=== PATIENT | male | born 1980 | race Caucasian/White ===

== ENCOUNTER 2020-08-25 12:39 | Emergency (ER) | payer OTHER ==
[2020-08-25 12:44] VITALS: RESP 18; TEMP 98.8
[2020-08-25] MEDS ORDERED: SODIUM CHLORIDE 0.9% 1,000 ML IV STA (13:15)
[2020-08-25 13:50] LABS: Basophils # (A) 0.1 k/uL (0-0.2); Basophils % (A) 1 %; Eosinophils # (A) 0.2 k/uL (0-0.7); Eosinophils % (A) 4 %; HGB 16.1 gm/dL (13.0-17.5); Lymphocytes # (A) 1.5 k/uL (1.0-4.8); Lymphocytes % (A) 30 %; MCH 30.1 pg (25.0-35.0); MCHC 35.9 g/dL (31.0-37.0); Mean Platelet Volume 7.4; Monocytes # (A) 0.3 k/uL (0-1.0); Monocytes % (A) 7 %; Neutrophils # (A) 2.8 k/uL (1.3-7.7); Neutrophils % (A) 56 %; Platelet Count 197 k/uL (150-450); RBC 5.36 m/uL (4.30-5.90); RDW 12.7 % (11.5-15.5)
[2020-08-25 14:00] LABS: Partial Thromboplastin Time 25.8 sec (22.0-30.0); Prothrombin Time 10.5 sec (9.0-12.0)
[2020-08-25 14:12] LABS: ALT 48 U/L (4-49); AST 32 U/L (17-59); African American GFR (CKD) >90 (>60 ml/min/1.73 sqM); Albumin 4.6 g/dL (3.5-5.0); Alkaline Phosphatase 58 U/L (38-126); Anion Gap 5 mmol/L; Blood Urea Nitrogen 17 mg/dL (9-20); Calcium 9.5 mg/dL (8.4-10.2); Carbon Dioxide 29 mmol/L (22-30); Chloride 106 mmol/L (98-107); Glucose 82 mg/dL (74-99); Non-African American GFR(CKD) 86 (>60 ml/min/1.73 sqM); Potassium 4.4 mmol/L (3.5-5.1); Sodium 140 mmol/L (137-145); Total Bilirubin 0.7 mg/dL (0.2-1.3); Total Protein 7.5 g/dL (6.3-8.2)
--- NOTE | 2020-08-25 15:05 | CT ---
EXAMINATION TYPE: CT abdomen pelvis w con DATE OF EXAM: 08/25/2020 COMPARISON: None INDICATION: rectal bleeding DLP: 1436.5 mGycm, Automated exposure control for dose reduction was used. CONTRAST: 100 mL of Isovue 300. Study performed without Oral Contrast TECHNIQUE: Axial images were obtained from above the diaphragm to the pubic rami in the axial plane a t 5 mm thick sections. Reconstructed images are reviewed on the computer in the coronal plane. FINDINGS: Limited CT sections are obtained the lung bases. The lung bases are clear. CT ABDOMEN: Liver: There is mild fatty infiltration the liver. Spleen: Normal Pancreas: Normal Adrenal glands: The adrenal glands are normal. Gallbladder: Normal Kidneys: No masses are evident. No hydronephrosis is present. Tiny cortical renal cyst may be prese nt on the right. Delayed images were obtained through the kidneys, which remain unremarkable. Aorta: Normal Inferior vena cava: Normal. CT PELVIS: Loops of bowel within the abdomen and pelvis are normal. No suspicious dilated loops of bowel or wal l thickening is evident. No acute diverticulitis is evident. No dilated loops of bowel are evident There are loops of bowel which are incompletely distended or lack oral contrast limiting their evalua tion. Appendix: Normal as visualized. Urinary bladder: Normal. Genitourinary structures: Prostate is normal. Osseous structures: No suspicious lytic or sclerotic lesions. IMPRESSIONS: 1. No suspicious abnormality to account for rectal bleeding is evident. 2. Mild fatty infiltration the liver
--- NOTE | 2020-08-25 15:19 | ED ---
GI Bleed HPI - General Chief complaint: GI Bleed Stated complaint: Blood in stool Time Seen by Provider: 08/25/20 12:54 Source: patient Mode of arrival: ambulatory Limitations: no limitations - History of Present Illness Initial comments: Patient is a 39-year-old male with no past medical history presents emergency room with reported rectal bleeding. Patient states that yesterday he had some diarrhea which is not abnormal for him. Today he awoke with continued diarrhea. He then ended up having an episode where he filled the toilet bowl with bright red blood. No history of similar. Patient denies history of peptic ulcer disease. Denies use of NSAIDs or alcohol. Denies any abdominal pain or rectal pain. No nausea, vomiting or hematemesis. No fevers or chills. No family history or personal history of inflammatory bowel disease. No chest pain or shortness of breath. No other alleviating, precipitating or modifying factors - Related Data Home Medications Medication Instructions Recorded Confirmed No Known Home Medications 03/31/16 08/25/20 Allergies Allergy/AdvReac Type Severity Reaction Status Date / Time No Known Allergies Allergy Verified 08/25/20 14:47 Review of Systems ROS Statement: Those systems with pertinent positive or pertinent negative responses have been documented in the HPI. ROS Other: All systems not noted in ROS Statement are negative. Past Medical History Past Medical History: No Reported History History of Any Multi-Drug Resistant Organisms: MRSA Date of last positivie culture/infection: 2007 MDRO Source:: right forearm, left elbow. Past Surgical History: Orthopedic Surgery Additional Past Surgical History / Comment(s): Left wrist sx Past Psychological History: No Psychological Hx Reported Smoking Status: Never smoker Past Alcohol Use History: Occasional Past Drug Use History: None Reported General Exam Limitations: no limitations Course Vital Signs 08/25/20 08/25/20 12:41 15:35 Temperature 98.8 F Pulse Rate 78 60 Respiratory 18 18 Rate Blood Pressure 133/85 125/87 O2 Sat by Pulse 98 98 Oximetry Medical Decision Making - Medical Decision Making Upon arrival patient is placed in the hallway 19. A thorough history and phy sical exam was performed. Rectal exam was performed which them strict a scant amount of stool. This is sent for culture testing. Laboratory studies are performed. White blood cell count is 5. Hemoglobin 16.1. Simple does return positive for blood. CT demonstrated no suspicious abnormality to account for rectal bleeding.. Results are discussed the patient. He has not had any further episodes since he has been in the emergency department. The patient be discharged home at this time. Instructed to follow up with GI for colonoscopy. Return to the emergency room for any new or worsening symptoms. Patient understood this. Given written and verbal discharge instructions and discharged home in stable condition - Lab Data Result diagrams: 08/25/20 13:38 08/25/20 13:38 Lab Results 08/25/20 08/25/20 08/25/20 Range/Units 13:38 13:38 13:38 WBC 5.0 (3.8-10.6) k/uL RBC 5.36 (4.30-5.90) m/uL Hgb 16.1 (13.0-17.5) gm/dL Hct 45.0 (39.0-53.0) % MCV 84.0 (80.0-100.0) fL MCH 30.1 (25.0-35.0) pg MCHC 35.9 (31.0-37.0) g/dL RDW 12.7 (11.5-15.5) % Plt Count 197 (150-450) k/uL MPV 7.4 Neutrophils % 56 % Lymphocytes % 30 % Monocytes % 7 % Eosinophils % 4 % Basophils % 1 % Neutrophils # 2.8 (1.3-7.7) k/uL Lymphocytes # 1.5 (1.0-4.8) k/uL Monocytes # 0.3 (0-1.0) k/uL Eosinophils # 0.2 (0-0.7) k/uL Basophils # 0.1 (0-0.2) k/uL PT 10.5 (9.0-12.0) sec INR 1.0 (<1.2) APTT 25.8 (22.0-30.0) sec Sodium (137-145) mmol/L Potassium (3.5-5.1) mmol/L Chloride (98-107) mmol/L Carbon Dioxide (22-30) mmol/L Anion Gap mmol/L BUN (9-20) mg/dL Creatinine (0.66-1.25) mg/dL Est GFR (CKD-EPI)AfAm (>60 ml/min/1.73 sqM) Est GFR (CKD-EPI)NonAf (>60 ml/min/1.73 sqM) Glucose (74-99) mg/dL Plasma Lactic Acid Silvestre (0.7-2.0) mmol/L Calcium (8.4-10.2) mg/dL Total Bilirubin (0.2-1.3) mg/dL AST (17-59) U/L ALT (4-49) U/L Alkaline Phosphatase (38-126) U/L Total Protein (6.3-8.2) g/dL Albumin (3.5-5.0) g/dL Stool Occult Blood Positive (Negative) 08/25/20 08/25/20 Range/Units 13:38 13:38 WBC (3.8-10.6) k/uL RBC (4.30-5.90) m/uL Hgb (13.0-17.5) gm/dL Hct (39.0-53.0) % MCV (80.0-100.0) fL MCH (25.0-35.0) pg MCHC (31.0-37.0) g/dL RDW (11.5-15.5) % Plt Count (150-450) k/uL MPV Neutrophils % % Lymphocytes % % Monocytes % % Eosinophils % % Basophils % % Neutrophils # (1.3-7.7) k/uL Lymphocytes # (1.0-4.8) k/uL Monocytes # (0-1.0) k/uL Eosinophils # (0-0.7) k/uL Basophils # (0-0.2) k/uL PT (9.0-12.0) sec INR (<1.2) APTT (22.0-30.0) sec Sodium 140 (137-145) mmol/L Potassium 4.4 (3.5-5.1) mmol/L Chloride 106 (98-107) mmol/L Carbon Dioxide 29 (22-30) mmol/L Anion Gap 5 mmol/L BUN 17 (9-20) mg/dL Creatinine 1.09 (0.66-1.25) mg/dL Est GFR (CKD-EPI)AfAm >90 (>60 ml/min/1.73 sqM) Est GFR (CKD-EPI)NonAf 86 (>60 ml/min/1.73 sqM) Glucose 82 (74-99) mg/dL Plasma Lactic Acid Silvestre 0.8 (0.7-2.0) mmol/L Calcium 9.5 (8.4-10.2) mg/dL Total Bilirubin 0.7 (0.2-1.3) mg/dL AST 32 (17-59) U/L ALT 48 (4-49) U/L Alkaline Phosphatase 58 (38-126) U/L Total Protein 7.5 (6.3-8.2) g/dL Albumin 4.6 (3.5-5.0) g/dL Stool Occult Blood (Negative) Disposition Clinical Impression: Hematochezia Disposition: HOME SELF-CARE Condition: Stable Instructions (If sedation given, give patient instructions): Gastrointestinal Bleeding (ED) Additional Instructions: Please follow-up with your primary care doctor. Return to the emergency room for any new or worsening symptoms. You will need to have a colonoscopy Is patient prescribed a controlled substance at d/c from ED?: No Referrals: None,Stated [Primary Care Provider] - 1-2 days Son Perdue MD [STAFF PHYSICIAN] - 1-2 days Time of Disposition: 15:17
[2020-08-25 15:39] VITALS: BP 125/87; PULSE 60
== END 2020-08-25 15:40 | disposition home or self-care (01) ==
LOC: EC 12:39
DX: K92.1 Melena (principal)
CPT/HCPCS: 36415; 80053; 83605; 85025; 85610; 85730; 82272; 74177; 99285; 96360; Q9967

== ENCOUNTER → 2020-09-03 | Outpatient (CLI) | payer OTHER | END | disposition home or self-care (01) | LOC: LABWHC1 09:15 | PROVIDERS: ATTEND Nurse Practitioner | DX: Z52.9 Donor of unspecified organ or tissue (principal) | CPT/HCPCS: 36415; 83516 ==

== ENCOUNTER 2020-09-30 07:33 | Day surgery (SDC) | payer OTHER ==
[2020-09-27 15:22] VITALS: BMI 33.9
[~2020-09-30 07:33] MED LIST: LACTATED RINGERS 1,000 ML IV SCH; LIDOCAINE 1% (10MG/ML) FOR IV START INTRADERMA PRN
[2020-09-30 07:45] VITALS: RESP 18; TEMP 98.1
[2020-09-30] MEDS ORDERED: LACTATED RINGERS 1,000 ML IV ONE ×2 (07:45)
[2020-09-30] MEDS ORDERED: LIDOCAINE 1% INJ 10MG/ML (20 ML MDV) ONE (08:59)
[2020-09-30] MEDS ORDERED: PROPOFOL 10 MG/ML 20 ML VIAL IV ONE (08:59)
--- NOTE | 2020-09-30 09:38 | P.PCN ---
Date of Procedure: 09/30/20 Description of Procedure: BRIEF HISTORY: Patient is a 40-year-old female presenting for Outpatient colonoscopy for evaluation of hemorrhage and anus. Patient been seen in the GI clinic complaining of symptoms of painless bright red blood per rectum. He has chronic diarrhea at baseline. He denies any family history of colon cancer. PROCEDURE PERFORMED: Colonoscopy with polypectomy and biopsy. PREOPERATIVE DIAGNOSIS: Hemorrhage of the anus, chronic diarrhea. ESTIMATED BLOOD LOSS: Minimal. IV sedation per Anesthesia. PROCEDURE: After informed consent was obtained, the patient, was brought into the endoscopy unit. IV sedation was administered by Anesthesia under continuous monitoring. Digital rectal examination was normal. Initially the Olympus CF-190 flexible video colonoscope was then inserted in the rectum, gradually advanced into the cecum without any difficulty. Careful examination was performed as the scope was gradually being withdrawn. Ileocecal valve and the appendiceal orifice were visualized and appeared normal. Prep was excellent. Mucosa of the cecum, ascending colon, transverse colon, descending colon, sigmoid colon, and rectum appeared normal, With random biopsies taken of the right and left colon as well as a normal-appearing terminal ileum. A pedunculated 1 cm ascending colon polyp was removed with hot snare polypectomy. Retroflexion was performed in the rectum and no lesions were seen, Low-grade internal hemorrhoids and skin tags noticed. The patient tolerated the procedure well. IMPRESSION: Pedunculated descending colon polyp removed with hot snare polypectomy. Otherwise normal-appearing colon from rectum to cecum with normal-appearing terminal ileum and random biopsies taken of the right colon, left colon and terminal ileum in the setting of chronic diarrhea. Internal hemorrhoids. RECOMMENDATIONS: Findings of this examination were discussed with the patient and his family. Okay to resume diet. Okay to resume medications. Await pathology from polypectomy and biopsies. Follow up in GI clinic as scheduled. Recommend repeat colonoscopy in 3 years for colon polyps pending pathology from polypectomy.
[2020-09-30 09:56] VITALS: BP 137/88; PULSE 70
== END 2020-09-30 10:29 | disposition home or self-care (01) ==
LOC: ORWHC2ENDO 07:33
PROVIDERS: ATTEND Internal Medicine
DX: D12.4 Benign neoplasm of descending colon (principal); Z98.890 Other specified postprocedural states; K64.8 Other hemorrhoids; K52.9 Noninfective gastroenteritis and colitis, unspecified; F17.200 Nicotine dependence, unspecified, uncomplicated
CPT/HCPCS: 45385; 45380; 88305; J2001; J2704

== ENCOUNTER 2020-10-19 01:23 | Emergency (ER) | payer OTHER ==
[2020-10-19 01:33] VITALS: BP 139/88; PULSE 87; RESP 18; TEMP 99
--- NOTE | 2020-10-19 02:13 | XR ---
EXAM: XR Left Ribs and AP Chest, 3 or More Views CLINICAL HISTORY: pain TECHNIQUE: Frontal and oblique views of the left ribs and frontal view of the chest. COMPARISON: No relevant prior studies available. FINDINGS: Lungs: No significant abnormality. No consolidation. Pleural space: No significant abnormality. No pneumothorax. Heart: No significant abnormality. No cardiomegaly. Mediastinum: No significant abnormality. Bones/joints: No acute abnormality. IMPRESSION: No radiographic evidence of acute traumatic thoracic injury. No acute displaced rib fractures.
[2020-10-19] MEDS ORDERED: KETOROLAC 15 MG/ML 1 ML VIAL IM STA (02:16)
[2020-10-19] MEDS ORDERED: ACET/COD 300 MG/30 MG STARTER PACK 6 TAB BTL PO STA (02:20)
--- NOTE | 2020-10-19 02:20 | ED ---
General Adult HPI - General Chief complaint: Fall Stated complaint: Fall, LT rib pain Time Seen by Provider: 10/19/20 01:33 Source: patient, RN notes reviewed Mode of arrival: ambulatory Limitations: no limitations - History of Present Illness Initial comments: 40-year-old male presents to the emergency room for a chief complaint of left- sided rib pain. Patient states about an hour prior to arrival he was walking outside and slipped on ice. States that he fell on his left side with his arm under him. Patient states that his arm to deny get hurt but it injured his ribs. Patient states it hurts to move cough or laugh. States it hurts to press on the area. Patient denies shortness of breath. Patient denies hitting his head. He denies taking blood thinners. He denies any other injuries. Denies any abdominal pain or back pain.Patient has no other complaints at this time including shortness of breath, chest pain, abdominal pain, nausea or vomiting, headache, or visual changes. - Related Data Home Medications Medication Instructions Recorded Confirmed No Known Home Medications 03/31/16 09/27/20 Allergies Allergy/AdvReac Type Severity Reaction Status Date / Time No Known Allergies Allergy Verified 10/19/20 01:33 Review of Systems ROS Statement: Those systems with pertinent positive or pertinent negative responses have been documented in the HPI. ROS Other: All systems not noted in ROS Statement are negative. Past Medical History Past Medical History: GI Bleed History of Any Multi-Drug Resistant Organisms: MRSA Date of last positivie culture/infection: 2007 MDRO Source:: right forearm, left elbow. Past Surgical History: Orthopedic Surgery Additional Past Surgical History / Comment(s): Left wrist sx, 1cm adenoma removal 09/2020 Past Psychological History: No Psychological Hx Reported Smoking Status: Never smoker Past Alcohol Use History: Occasional Past Drug Use History: None Reported General Exam Limitations: no limitations General appearance: alert, in no apparent distress Head exam: Present: atraumatic, normocephalic Eye exam: Present: normal appearance, PERRL, EOMI. Absent: scleral icterus, conjunctival injection ENT exam: Present: normal exam, mucous membranes moist Neck exam: Present: normal inspection, full ROM. Absent: tenderness Respiratory exam: Present: normal lung sounds bilaterally, chest wall tenderness (Patient has left sided anterior lateral chest wall tenderness around rib 8. There is no ecchymosis or evidence of external trauma). Absent: respiratory distress, wheezes Cardiovascular Exam: Present: regular rate, normal rhythm, normal heart sounds. Absent: systolic murmur, diastolic murmur, rubs, gallop, clicks GI/Abdominal exam: Present: soft, normal bowel sounds. Absent: distended, tenderness, guarding, rebound, rigid Back exam: Absent: CVA tenderness (R), CVA tenderness (L), vertebral tenderness Course Vital Signs 10/19/20 01:28 Temperature 99.0 F Pulse Rate 87 Respiratory 18 Rate Blood Pressure 139/88 O2 Sat by Pulse 98 Oximetry Medical Decision Making - Medical Decision Making Vitals are stable. HPI and physical exam as documented.X-ray of the left ribs shows no radiographic evidence of acute traumatic thoracic injury. No acute displaced rib fracture. Patient likely has contusion of the left side of the ribs. Patient given IM Toradol. Recommended Motrin and Tylenol for pain. Recommended he follow up with his doctor. If he has any worsening symptoms he will return to the emergency room. Disposition Clinical Impression: Rib pain on left side Disposition: HOME SELF-CARE Instructions (If sedation given, give patient instructions): Rib Contusion (ED) Additional Instructions: Please take Motrin and Tylenol for pain. Please follow-up with your doctor in one to 2 days. Return to the emergency room for any worsening symptoms. Is patient prescribed a controlled substance at d/c from ED?: No Referrals: Don Shanks MD [Primary Care Provider] - 1-2 days Time of Disposition: 02:19
== END 2020-10-19 02:37 | disposition home or self-care (01) ==
LOC: EC 01:23
DX: R07.81 Pleurodynia (principal); W00.0XXA Fall on same level due to ice and snow, initial encounter; Y93.01 Activity, walking, marching and hiking
CPT/HCPCS: 71101; 99283; 96372; J1885

== ENCOUNTER 2023-01-11 11:00 | Observation (INO) | payer BC, OTHER ==
[2023-01-11] MEDS ORDERED: ASPIRIN 81 MG PO STA (11:09)
--- NOTE | 2023-01-11 12:13 | XR ---
EXAMINATION TYPE: XR chest 2V DATE OF EXAM: 01/11/2023 COMPARISON: 10/19/2020 HISTORY: Chest pain TECHNIQUE: Frontal and lateral views of the chest are obtained. FINDINGS: There is no focal air space opacity. No evidence for pneumothorax. No pleural effusion. The cardiac silhouette size is within normal limits. The osseous structures are grossly intact. IMPRESSION: 1. No acute cardiopulmonary process.
[2023-01-11 12:21] LABS: Basophils % (A) 1 %; Eosinophils # (A) 0.1 k/uL (0-0.7); Eosinophils % (A) 3 %; HCT 42.7 % (39.0-53.0); HGB 14.8 gm/dL (13.0-17.5); Hyperchromasia Slight; Lymphocytes # (A) 1.1 k/uL (1.0-4.8); Lymphocytes % (A) 25 %; MCH 28.6 pg (25.0-35.0); MCHC 34.6 g/dL (31.0-37.0); MCV 82.7 fL (80.0-100.0); Mean Platelet Volume 7.8; Monocytes # (A) 0.3 k/uL (0-1.0); Monocytes % (A) 7 %; Neutrophils # (A) 2.6 k/uL (1.3-7.7); Neutrophils % (A) 62 %; Platelet Count 190 k/uL (150-450); RBC 5.17 m/uL (4.30-5.90); WBC 4.3 k/uL (3.8-10.6)
[2023-01-11 12:22] LABS: ALT 38 U/L (4-49); AST 30 U/L (17-59); African American GFR (CKD) >90 (>60 ml/min/1.73 sqM); Albumin 4.5 g/dL (3.5-5.0); Alkaline Phosphatase 64 U/L (38-126); Anion Gap 11 mmol/L; Blood Urea Nitrogen 18 mg/dL (9-20); Calcium 8.8 mg/dL (8.4-10.2); Carbon Dioxide 26 mmol/L (22-30); Chloride 102 mmol/L (98-107); Glucose 94 mg/dL (74-99); Magnesium 2.3 mg/dL (1.6-2.3); Non-African American GFR(CKD) 88 (>60 ml/min/1.73 sqM); Potassium 4.2 mmol/L (3.5-5.1); Sodium 139 mmol/L (137-145); Total Bilirubin 0.9 mg/dL (0.2-1.3); Total Protein 7.2 g/dL (6.3-8.2)
[2023-01-11 12:28] LABS: Partial Thromboplastin Time 26.4 sec (22.0-30.0); Prothrombin Time 10.9 sec (9.0-12.0)
[2023-01-11] MEDS ORDERED: NITROGLYCERIN SL TABS 0.4 MG TAB SUBLINGUAL PRN (13:18)
--- NOTE | 2023-01-11 13:18 | ED ---
Chest Pain HPI - General Chief Complaint: Chest Pain Stated Complaint: Chest Pain Time Seen by Provider: 01/11/23 11:05 Source: patient, RN notes reviewed Mode of arrival: ambulatory Limitations: no limitations - History of Present Illness Initial Comments: 42-year-old male presents emergency Department chief complaint of chest pain. Patient was in the emergency room with his son when he developed sudden onset of left-sided chest pain, pressure states she had a headache and felt lightheaded. Patient states she's been worked up for cardiac disease as he is recently placed on hypertension meds he is scheduled for stress test has seen cardiology. Patient denies any back pain, abdominal pain. Patient offers no other associated symptoms. - Related Data Home Medications Medication Instructions Recorded Confirmed Ergocalciferol (Vitamin D2) 1,250 mcg PO FR 01/11/23 01/11/23 [Drisdol (50,000 Iu)] Losartan [Cozaar] 25 mg PO DAILY@1330 01/11/23 01/11/23 Pimecrolimus 1 applic TOPICAL DAILY PRN 01/11/23 01/11/23 Triamcinolone 0.1% Ointment 1 applic TOPICAL DAILY PRN 01/11/23 01/11/23 [Kenalog 0.1% Ointment] Allergies Allergy/AdvReac Type Severity Reaction Status Date / Time No Known Allergies Allergy Verified 01/11/23 11:44 Review of Systems ROS Statement: Those systems with pertinent positive or pertinent negative responses have been documented in the HPI. ROS Other: All systems not noted in ROS Statement are negative. EKG Findings - EKG Comments: EKG Findings:: EKG for 11:02 sinus rhythm with rate of 69 LA 171/94 QT/QTC 362/382 - EKG Results: EKG: interpreted by ELOISA Past Medical History Past Medical History: GI Bleed History of Any Multi-Drug Resistant Organisms: MRSA Date of last positivie culture/infection: 2007 MDRO Source:: right forearm, left elbow. Past Surgical History: Orthopedic Surgery Additional Past Surgical History / Comment(s): Left wrist sx, 1cm adenoma removal 09/2020 Past Psychological History: No Psychological Hx Reported Smoking Status: Never smoker Past Alcohol Use History: Occasional Past Drug Use History: None Reported General Exam Limitations: no limitations General appearance: alert, in no apparent distress Head exam: Present: atraumatic, normocephalic, normal inspection Eye exam: Present: normal appearance, PERRL, EOMI. Absent: scleral icterus, conjunctival injection, periorbital swelling ENT exam: Present: normal exam, normal oropharynx, mucous membranes moist Neck exam: Present: normal inspection. Absent: tenderness, meningismus, lymphadenopathy Respiratory exam: Present: normal lung sounds bilaterally. Absent: respiratory distress, wheezes, rales, rhonchi, stridor Cardiovascular Exam: Present: regular rate, normal rhythm, normal heart sounds. Absent: systolic murmur, diastolic murmur, rubs, gallop, clicks Course Vital Signs 01/11/23 01/11/23 01/11/23 11:08 11:30 11:39 Temperature 98.1 F Pulse Rate 75 76 63 Respiratory 6 L 16 Rate Blood Pressure 144/95 O2 Sat by Pulse 98 99 94 L Oximetry Chest Pain MDM - MDM Was pt. sent in by a medical professional or institution (, PA, LICENSING WORKER, urgent c are, hospital, or fdc...) When possible be specific @ -No Did you speak to anyone other than the patient for history (EMS, parent, family, police, friend...)? What history was obtained from this source @ -No Did you review nursing and triage notes (agree or disagree)? Why? @ -I reviewed and agree with nursing and triage notes Were old charts reviewed (outside hosp., previous admission, EMS record, old EKG, old radiological studies, urgent care reports/EKG's, fdc records)? Report findings @ -No old charts were reviewed Differential Diagnosis (chest pain, altered mental status, abdominal pain women, abdominal pain men, vaginal bleeding, weakness, fever, dyspnea, syncope, headache, dizziness, GI bleed, back pain, seizure, CVA, palpatations, mental health, musculoskeletal)? @ -Differential Chest Pain: Stable Angina, Unstable Angina, STEMI, NSTEMI Aortic Dissection, Pneumothorax, Musculoskeletal, Esophageal Spasm GERD, Cholecystitis, Pancreatitis, Zoster, this is not meant to be an all-inclusive list. licable EKG interpreted by me (3pts min.). @ -As above X-rays interpreted by me (1pt min.). @ -Chest x-ray shows no acute process CT interpreted by me (1pt min.). @ -None done U/S interpreted by me (1pt. min.). @ -None done What testing was considered but not performed or refused? (CT, X-rays, U/S, labs)? Why? @ -None What meds were considered but not given or refused? Why? @ -None Did you discuss the management of the patient with other professionals (professionals i.e. , PA, LICENSING WORKER, lab, RT, psych nurse, social service manager, gear cutting machine operator, teacher, planned giving officer, disability case manager)? Give summary @ -That she for admission for further repeat troponin, echocardiogram, cardiology evaluation Was smoking cessation discussed for >3mins.? @ -No Was critical care preformed (if so, how long)? @ -No Were there social determinants of health that impacted care today? How? (Homelessness, low income, unemployed, alcoholism, drug addiction, transportation, low edu. Level, literacy, decrease access to med. care, [place] [facility], rehab)? @ -No Was there de-escalation of care discussed even if they declined (Discuss DNR or withdrawal of care, Hospice)? DNR status @ -No What co-morbidities impacted this encounter? (DM, HTN, Smoking, COPD, CAD, Cancer, CVA, ARF, Chemo, Hep., AIDS, mental health diagnosis, sleep apnea, morbid obesity)? @ -Hypertension Was patient admitted / discharged? Hospital course, mention meds given and route, prescriptions, significant lab abnormalities, going to OR and other pertinent info. @ -[Admitted patient does have concerning complaints of chest pain. Patient has been worked up with cardiology. Patient will be admitted for cardiac rule out with echocardiogram cardiology evaluation Undiagnosed new problem with uncertain prognosis? @ -No Drug Therapy requiring intensive monitoring for toxicity (Heparin, Nitro, Insulin, Cardizem)? @ -No Were any procedures done? @ -No Diagnosis/symptom? @ -Chest pain Acute, or Chronic, or Acute on Chronic? @ -Acute Uncomplicated (without systemic symptoms) or Complicated (systemic symptoms)? @ - complicated Side effects of treatment? @ -No Exacerbation, Progression, or Severe Exacerbation? @ -No Poses a threat to life or bodily function? How? (Chest pain, [place], [place], pneumonia, PE, COPD, DKA, ARF, appy, cholecystitis, CVA, Diverticulitis, Homicidal, Suicidal, threat to staff... and all critical care pts) @ -yes patient has chest pain at risk for cardiac arrest Disposition Clinical Impression: Chest pain Disposition: ADMITTED IP TO THIS HOSP Referrals: Don Shanks MD [Primary Care Provider] - 1-2 days Time of Disposition: 13:02
[2023-01-11] MEDS ORDERED: NON FORMULARY DRUG (Pimecrolimus [Pimecrolimus] 30 GM Cream..G.) TOPICAL PRN (14:54)
[2023-01-11] MEDS ORDERED: TRIAMCINOLONE ACET 0.1% OINTMENT 15 GM TUBE TOPICAL PRN (14:54)
[2023-01-11] MEDS ORDERED: LOSARTAN 25 MG TAB PO STA (16:03)
[2023-01-11] MEDS ORDERED: ALPRAZolam 0.25 MG TAB PO PRN (17:08)
--- NOTE | 2023-01-12 03:28 | HP ---
HISTORY AND PHYSICAL CHIEF COMPLAINT: Chest pain and shortness of breath. HISTORY OF PRESENT ILLNESS: This is a 42-year-old gentleman with a past medical history of MRSA, GI bleed also, and episodes of dizziness and vertigo recently. Currently, the patient was in the ER because his son tried to commit suicide and being admitted for depression. Apparently, the patient developed a sudden onset of severe tightness in the anterior part of the chest and shortness of breath. The patient had some headaches and the patient was evaluated in the ER. Initial workup was negative. The patient was admitted for further evaluation and treatment. The patient apparently had a stress test being scheduled. PAST MEDICAL HISTORY: Reviewed include GI bleed, MRSA. Rest of the history and rest of the chart is also reviewed. HOME MEDICATIONS: Reviewed include Cozaar, dose and rest of medications noted. ALLERGIES: None. FAMILY HISTORY: History of heart disease in the family. SOCIAL HISTORY: Occasional alcohol. REVIEW OF SYSTEMS: A 14-point review is negative except as mentioned earlier. PHYSICAL EXAMINATION: VITAL SIGNS: Pulse is 76, blood pressure 120/80, respirations 18. HEENT: Neck, no jugular venous distention. Eyes are normal. CARDIOVASCULAR: S1, S2 muffled. RESPIRATIONS: Clear to auscultation. ABDOMEN: Soft, nontender. LEGS: No edema. NERVOUS SYSTEM: Nonfocal. SKIN: No ulcer, rash, bleeding. JOINTS: No active deforming arthropathy. LABORATORY DATA: Reviewed. D-dimer is negative. EKG reviewed. ASSESSMENT: 1. Chest pain, possible unstable angina. 2. Possible panic attacks. 3. Gastrointestinal bleed. 4. History of methicillin-resistant Staphylococcus aureus. RECOMMENDATIONS AND DISCUSSION: This is a 42-year-old gentleman, who presented with multiple complex medical issues. I recommend to continue with current medications. We will monitor the patient on telemetry and unstable angina protocol. Cardiology consultation. Possible stress test in the morning. Prognosis guarded because of multiple complex medical issues. Further recommendations to follow. See orders for further details. MMODL / IJN: [id number] /
[2023-01-12] MEDS ORDERED: PANTOPRAZOLE 40 MG TABLET PO SCH (07:30)
[2023-01-12 08:09] VITALS: RESP 16
[2023-01-12] MEDS ORDERED: ASPIRIN 81 MG PO SCH (09:00)
[2023-01-12] MEDS ORDERED: ASPIRIN 325 MG TAB PO SCH (09:00)
[2023-01-12] MEDS ORDERED: ERGOCALCIFEROL 1,250 MCG (50,000 IU) CAPSULE PO SCH (09:00)
--- NOTE | 2023-01-12 09:33 | P.CRDCN ---
History of Present Illness History of present illness: HISTORY OF PRESENT ILLNESS: This is a 42-year-old male with a past medical history significant for hypertension and vertigo. Patient follows in the office with Dr. aWng. We have been asked to see the patient in consultation for chest pain. Patient examined at the bedside. Patient states yesterday he was in the emergency room with his son who is brought in for treatment when the patient began having chest pain. The patient states he felt like he had a weight sitting on his chest. He states that he was feeling short of breath and was having a hard time taking a deep breath. He denied any radiation of the pain. He reports having a headache at the time too. He states the pain lasted for a couple minutes and then went away. At the time of examination this morning, the patient denies any chest pain or pressure. He is a nonsmoker. He has a family history of coronary artery disease and states his mother had a myocardial infarction. * EKG reveals sinus mechanism with no signs of acute ischemia * Chest xray negative for acute process * Laboratory data: WBC 4.3. Hemoglobin 14.8. Pleasant, 190. D-dimer 0.21. Sodium 139. Potassium 4.2. BUN 18. Creatinine 1.05. Troponin negative 3. * Current home cardiac medications include losartan 25 mg daily REVIEW OF SYSTEMS: At the time of my exam: CONSTITUTIONAL: Denies fever or chills. HEENT: Denies blurred vision, vision changes, or eye pain. Denies hemoptysis CARDIOVASCULAR: Denies chest pain. Denies orthopnea. Denies PND. Denies palpitations RESPIRATORY: Denies shortness of breath. GASTROINTESTINAL: Denies abdominal pain. Denies nausea or vomiting. HEMATOLOGIC: Denies bleeding disorders. GENITOURINARY: Denies any blood in urine. SKIN: Denies pruitis. Denies rash. PHYSICAL EXAM: VITAL SIGNS: Reviewed. GENERAL: Well-developed in no acute distress. HEENT: Head is normocephalic. Pupils are equal, round. Sclerae anicteric. Mucous membranes of the mouth are moist. Neck supple. No JVD or thyromegaly LUNGS: Respirations even and unlabored. Lungs essentially clear to auscultation bilaterally. HEART: Regular rate and rhythm. S1 and S2 heard. ABDOMEN: Soft. Nondistended. Nontender. EXTREMITIES: Normal range of motion. No clubbing or cyanosis. Peripheral pulses intact. No lower extremity edema NEUROLOGIC: Awake and alert. Oriented x 3. ASSESSMENT: Chest pain, troponins negative 3 Hypertension History of vertigo Morbid obesity: BMI 33.9 PLAN: An acute coronary event has been ruled out Obtain 2-D echo to assess cardiac structure and function Resume home cardiac medications Decrease aspirin to 81 mg daily Patient undergo stress testing today If negative, he may be discharged home from a cardiac stent put in follow-up on an outpatient basis with Dr. Wang Nurse practitioner note has been reviewed by physician. Signing provider agrees with the documented findings, assessment, and plan of care. Past Medical History Past Medical History: GI Bleed History of Any Multi-Drug Resistant Organisms: MRSA Date of last positivie culture/infection: 2007 MDRO Source:: right forearm, left elbow. Past Surgical History: Orthopedic Surgery Additional Past Surgical History / Comment(s): Left wrist sx, 1cm adenoma removal 09/2020 Past Psychological History: No Psychological Hx Reported Smoking Status: Never smoker Past Alcohol Use History: Occasional Past Drug Use History: None Reported Medications and Allergies Home Medications Medication Instructions Recorded Confirmed Type Ergocalciferol (Vitamin D2) 1,250 mcg PO FR 01/11/23 01/11/23 History [Drisdol (50,000 Iu)] Losartan [Cozaar] 25 mg PO DAILY@1330 01/11/23 01/11/23 History Pimecrolimus 1 applic TOPICAL DAILY PRN 01/11/23 01/11/23 History Triamcinolone 0.1% Ointment 1 applic TOPICAL DAILY PRN 01/11/23 01/11/23 History [Kenalog 0.1% Ointment] Allergies Allergy/AdvReac Type Severity Reaction Status Date / Time No Known Allergies Allergy Verified 01/11/23 11:44 Physical Exam Vitals: Vital Signs Temp Pulse Pulse Resp BP BP Pulse Ox 01/12/23 03:10 97.7 F 49 L 18 112/64 99 01/11/23 19:27 98.1 F 67 18 110/69 96 01/11/23 16:52 97.8 F 82 18 117/80 97 01/11/23 16:11 98.1 F 76 18 128/83 99 01/11/23 14:39 98.0 F 66 16 136/92 95 01/11/23 14:02 98.1 F 87 16 98 01/11/23 13:30 16 131/95 96 01/11/23 11:39 98.1 F 63 16 144/95 94 L 01/11/23 11:30 76 99 01/11/23 11:08 75 6 L 98 Intake and Output 01/11/23 01/12/23 01/12/23 22:59 06:59 14:59 Intake Total 118 Balance 118 Intake: Oral 118 Other: # Voids 2 2 Results 01/11/23 11:38 01/11/23 11:38 Cardiac Enzymes 01/11/23 01/11/23 01/11/23 Range/Units 11:38 11:38 14:35 AST 30 (17-59) U/L Troponin I <0.012 <0.012 (0.000-0.034) ng/mL 01/11/23 Range/Units 17:53 AST (17-59) U/L Troponin I <0.012 (0.000-0.034) ng/mL Coagulation 01/11/23 Range/Units 11:38 PT 10.9 (9.0-12.0) sec APTT 26.4 (22.0-30.0) sec CBC 01/11/23 Range/Units 11:38 WBC 4.3 (3.8-10.6) k/uL RBC 5.17 (4.30-5.90) m/uL Hgb 14.8 (13.0-17.5) gm/dL Hct 42.7 (39.0-53.0) % Plt Count 190 (150-450) k/uL Comprehensive Metabolic Panel 01/11/23 Range/Units 11:38 Sodium 139 (137-145) mmol/L Potassium 4.2 (3.5-5.1) mmol/L Chloride 102 (98-107) mmol/L Carbon Dioxide 26 (22-30) mmol/L BUN 18 (9-20) mg/dL Creatinine 1.05 (0.66-1.25) mg/dL Glucose 94 (74-99) mg/dL Calcium 8.8 (8.4-10.2) mg/dL AST 30 (17-59) U/L ALT 38 (4-49) U/L Alkaline Phosphatase 64 (38-126) U/L Total Protein 7.2 (6.3-8.2) g/dL Albumin 4.5 (3.5-5.0) g/dL Current Medications Generic Name Dose Route Start Last Admin Trade Name Lawrenceq PRN Reason Stop Dose Admin Alprazolam 0.25 mg 01/11/23 17:08 Alprazolam 0.25 Mg Tab PO TID PRN Anxiety Aspirin 81 mg 01/12/23 09:00 Aspirin 81 Mg PO DAILY [facility] Ergocalciferol 1,250 mcg 01/12/23 09:00 01/12/23 07:53 Ergocalciferol 1,250 Mcg (50,000 Iu) Capsule PO Not Given FR [facility] Losartan Potassium 25 mg 01/12/23 13:30 Losartan 25 Mg Tab PO DAILY@1330 [facility] Nitroglycerin 0.4 mg 01/11/23 13:18 Nitroglycerin Sl Tabs 0.4 Mg Tab SUBLINGUAL Q5M PRN Chest Pain Pantoprazole Sodium 40 mg 01/12/23 07:30 01/12/23 07:52 Pantoprazole 40 Mg Tablet PO 40 mg AC-BRKFST [facility] Administration Triamcinolone Acetonide 1 applic 01/11/23 14:54 Triamcinolone Acet 0.1% Ointment 15 Gm Tube TOPICAL DAILY PRN ECZEMA Protocol Intake and Output 01/11/23 01/12/23 01/12/23 22:59 06:59 14:59 Intake Total 118 Balance 118 Intake: Oral 118 Other: # Voids 2 2 01/11/23 11:38 01/11/23 11:38
[2023-01-12 11:04] LABS: Basophils # (A) 0.03 X 10*3/uL (0.00-0.10); Basophils % (A) 0.6 %; Eosinophils # (A) 0.14 X 10*3/uL (0.04-0.35); Eosinophils % (A) 2.6 %; HCT 43.4 % (39.6-50.0); HGB 14.8 g/dL (13.0-17.0); Immature Grans, Automated 0.2 %; Lymphocytes # (A) 1.85 X 10*3/uL (0.90-5.00); Lymphocytes % (A) 34.8 %; MCH 28.8 pg (27.0-32.0); MCHC 34.1 g/dL (32.0-37.0); MCV 84.4 fL (80.0-97.0); Mean Platelet Volume 10.5 fL (9.5-12.2); Monocytes # (A) 0.47 X 10*3/uL (0.20-1.00); Monocytes % (A) 8.8 %; NRBC Per 100 WBC 0 /100 WBCS (0.0-0.0); Neutrophils # (A) 2.82 X 10*3/uL (1.80-7.70); Platelet Count 199 X 10*3/uL (140-440); RBC 5.14 X 10*6/uL (4.40-5.60); RDW 12.6 % (11.5-14.5); WBC 5.32 X 10*3/uL (4.50-10.00)
--- NOTE | 2023-01-12 11:57 | CA ---
Transthoracic Echo Report Name: Yury Morgan Age: 42 Gender: M : 1980 Exam Date: 01/12/2023 09:40 Exam Location: [facility] Echo Ht (in): 72 Wt (lb): 250 Ordering Physician: Yury Rivero Attending/Referring Phys: [id number], Mat [facility]valescent Sitter Anthony Escalera [facility] Procedure CPT: Indications: Chest Pain Cardiac Hx: HTN Technical Quality: Fair Contrast 1: Total Dose (mL): Contrast 2: Total Dose (mL): MEASUREMENTS (Male / Female) Normal Values 2D ECHO LV Diastolic Diameter PLAX 4.5 cm 4.2 - 5.9 / 3.9 - 5.3 cm LV Systolic Diameter PLAX 3.4 cm LV Fractional Shortening PLAX 23.7 % IVS Diastolic Thickness 1.1 cm 0.6 - 1.0 / 0.6 - 0.9 cm IVS Systolic Thickness 1.0 cm LVPW Diastolic Thickness 1.1 cm 0.6 - 1.0 / 0.6 - 0.9 cm LVPW Systolic Thickness 1.9 cm LV Relative Wall Thickness 0.5 RV Internal Dim ED PLAX 3.9 cm LVOT Diameter 2.0 cm LA Systolic Diameter LX 3.4 cm 3.0 - 4.0 / 2.7 - 3.8 cm LV Diastolic Volume MOD BP 113.8 cm??? 67 - 155 / 56 - 104 cm??? LV Systolic Volume MOD BP 68.2 cm??? 22 - 58 / 19 - 49 cm??? LV Ejection Fraction MOD BP 40.1 % >= 55 % LV Stroke Volume MOD BP 45.6 cm??? LV Diastolic Volume MOD 4C 106.8 cm??? LV Systolic Volume MOD 4C 62.3 cm??? LV Ejection Fraction MOD 4C 41.7 % LV Stroke Volume MOD 4C 44.5 cm??? LV Diastolic Length 4C 8.9 cm LV Systolic Length 4C 8.1 cm LV Diastolic Volume MOD 2C 115.0 cm??? LV Systolic Volume MOD 2C 71.1 cm??? LV Ejection Fraction MOD 2C 38.2 % LV Stroke Volume MOD 2C 43.9 cm??? LV Diastolic Length 2C 8.3 cm LV Systolic Length 2C 7.7 cm M-MODE Aortic Root Diameter MM 3.5 cm LA Systolic Diameter MM 4.6 cm LA Ao Ratio MM 1.3 MV E Point Septal Separation 1.2 cm AV Cusp Separation MM 2.2 cm DOPPLER AV Peak Velocity 119.8 cm/s AV Peak Gradient 5.7 mmHg MV Deceleration [place] 482.3 cm/s??? MR Peak Velocity 150.0 cm/s MR Peak Gradient 9.0 mmHg Mitral E Point Velocity 72.6 cm/s Mitral A Point Velocity 39.3 cm/s Mitral E to A Ratio 1.8 MV Deceleration Time 150.5 ms MV E' Velocity 8.7 cm/s Mitral E to MV E' Ratio 8.3 Pulmonary Vein Systolic Velocity 42.5 cm/s Pulmonary Vein Diastolic Velocit 33.8 cm/s Pulmonary Vein S/D Ratio 1.3 Pulmonary Vein A Velocity 29.5 cm/s Pulmonary Vein A to Mitral A Rat 0.8 TR Peak Velocity 99.9 cm/s TR Peak Gradient 4.0 mmHg Right Ventricular Systolic Press 9.0 mmHg PV Peak Velocity 85.3 cm/s PV Peak Gradient 2.9 mmHg FINDINGS Left Ventricle Left ventricular ejection fraction is estimated at 55-60 %. Borderline left ventricular hypertrophy. Normal left ventricular systolic function with no obvious regional wall motion abnormalities. Normal left ventricular diastolic filling pattern. Right Ventricle Normal right ventricular size and function. Right Atrium Normal right atrial size. Left Atrium Mild left atrial dilatation. Mitral Valve Structurally normal mitral valve. Trace to mild mitral regurgitation. Aortic Valve Trileaflet aortic valve. Tricuspid Valve Trace to mild tricuspid regurgitation. Pulmonic Valve Pulmonic valve not well visualized. Pericardium Normal pericardium. No pericardial effusion. Aorta Normal size aortic root and proximal ascending aorta. CONCLUSIONS Normal LV systolic function Mild concentric LVH Previewed by: Dr. Miguel Angel Perez MD (Electronically Signed) Final Date: 12 January 2023 11:56
[2023-01-12 12:07] LABS: African American GFR (CKD) 96.1 (60.0-200.0); BUN/Creat Ratio 15.18 Ratio (12.00-20.00); Blood Urea Nitrogen 16.7 mg/dL (9.0-27.0); Calcium 9.2 mg/dL (8.7-10.3); Carbon Dioxide 23.7 mmol/L (20.0-27.5); Chloride 107 mmol/L (96-109); Chol/HDL Ratio 7.85 Ratio; Glucose 94 mg/dL (70-110); LDL Cholesterol,Calculated 143.9 mg/dL (0.0-131.0); Non-African American GFR(CKD) 82.9 (60.0-200.0); Potassium 4.2 mmol/L (3.5-5.5); Sodium 140 mmol/L (135-145)
[2023-01-12] MEDS ORDERED: LOSARTAN 25 MG TAB PO SCH (13:30)
[2023-01-12 15:42] VITALS: BP 115/78; PULSE 68; TEMP 98.2
--- NOTE | 2023-01-12 19:27 | CA ---
Exercise Stress Test Report Name: Yury Morgan Exam Date: 01/12/2023 12:22 Exam Location: [facility] Stress Ht (in): 72 Wt (lb): 250 BSA: 2.34 Ordering Phys: Alize Evans Referring Phys: SAMANTA, Technologist: Pelon Bhatti Age: 42 Gender: M : 1980 Procedure CPT: Indications: CP ICD-10 Codes: Patient History: Medications: SEE CHART Meds past 24 hrs: Pretest Chest Pain: STRESS TEST Huy Protocol Exercise Duration (min:sec): 10:[address] Depressions (mm): Angina Score: Dyson Score: Resting HR (bpm): 80 Peak HR (bpm): 173 Resting BP (mmHg): 109 / 78 Peak BP (mmHg): 161 / 84 MPHR: 179 Target HR: 152 % MPHR: 97 METS: 12.1 Total Dose: Peak Dose: Atropine: Double Product: 59704 BP Response: Stress Termination: Reached target heart rate Stress Symptoms: NO SYMPTOMS Stress Summary: ECG ANALYSIS Resting ECG: Stress ECG: CONCLUSIONS Excellent exercise tolerance Normal EKG in response to exercise Dr. Miguel Angel Perez MD (Electronically Signed) Final Date: 12 January 2023 19:26
--- NOTE | 2023-01-12 20:25 | P.DS ---
Providers Date of admission: 01/11/23 13:04 Expected date of discharge: 01/12/23 Attending physician: Anam Collado MD Consults: 01/11/23 13:18 Consult Physician Urgent Consulting Provider: Miguel Angel Perez Consult Reason/Comments: chest pain Do you want consulting provider notified?: Yes Primary care physician: Don Shanks Hospital Course: Final diagnosis Chest pain, possible unstable angina, ACS ruled out Possible panic attacks History of gastrointestinal bleed History of MRSA Obesity with a BMI of 33.9 GI prophylaxis DVT prophylaxis Full code Discharge disposition Patient is being discharged in a stable condition with guarded prognosis to home. Patient will follow-up with Dr. Shanks in the outpatient setting upon discharge. Patient is to have outpatient with cardiology as scheduled. Total time taken is greater than 35 minutes. Hospital course This is a 42-year-old male who was recently admitted with chest pain and recently had episodes of dizziness with vertigo and came in with increased chest pain and undergoing a lot of stress as his son recently attempted to commit suicide and is currently hospitalized at a psychiatric facility. Patient was evaluated by cardiology and ACS ruled out and underwent echo with stress testing which was negative and patient has been cleared by cardiology for discharge. Recommend continue heart healthy diet and outpatient follow-up and also instructed to follow-up with primary care provider. Please refer to cardiology notes for further HPI. Currently no reports of chest pain, shortness of breath, or palpitations. Patient is afebrile. No reports of nausea or vomiting and patient is tolerating diet. Patient will be discharged home today. Physical exam: Gen: This is a 42-year-old male was awake, alert and oriented 3, well- developed, well-nourished, obese HEENT: Head is atraumatic, normocephalic. Pupils equal, round. Sclerae is anicteric. NECK: Supple. No JVD. No lymphadenopathy. No thyromegaly. LUNGS: Clear to auscultation. No wheezes or rhonchi. No intercostal retractions. HEART: Regular rate and rhythm. No murmur. ABDOMEN: Soft. Obese. Bowel sounds are present. No masses. No tenderness. EXTREMITIES: No pedal edema. No calf tenderness. NEUROLOGICAL: Patient is awake, alert and oriented x3. Cranial nerves 2 through 12 are grossly intact. Please refer to medication reconciliation sheet for a list of medications. The impression and plan of care has been dictated by Heaven Lieberman, Nurse Practitioner as directed. Dr. Jose Angel MD I have performed a history and examination and MDM of this patient, discussed the same with the dictator, and agree with the dictator's assessment and plan as written ,documented as a scribe. Based on total visit time, I have performed more than 50% of the visit. Patient Condition at Discharge: Stable Plan - Discharge Summary New Discharge Prescriptions: New Pantoprazole [Protonix] 40 mg PO AC-BRKFST #15 tab Aspirin 81 mg PO DAILY #30 tab Nitroglycerin Sl Tabs [Nitrostat] 0.4 mg SUBLINGUAL Q5M PRN #30 tab PRN Reason: Chest Pain Continue Triamcinolone 0.1% Ointment [Kenalog 0.1% Ointment] 1 applic TOPICAL DAILY PRN PRN Reason: ECZEMA Pimecrolimus 1 applic TOPICAL DAILY PRN PRN Reason: ECZEMA Losartan [Cozaar] 25 mg PO DAILY@1330 Ergocalciferol (Vitamin D2) [Drisdol (50,000 Iu)] 1,250 mcg PO FR Discharge Medication List Ergocalciferol (Vitamin D2) [Drisdol (50,000 Iu)] 1,250 mcg PO FR 01/11/23 [History] Losartan [Cozaar] 25 mg PO DAILY@1330 01/11/23 [History] Pimecrolimus 1 applic TOPICAL DAILY PRN 01/11/23 [History] Triamcinolone 0.1% Ointment [Kenalog 0.1% Ointment] 1 applic TOPICAL DAILY PRN 01/11/23 [History] Aspirin 81 mg PO DAILY #30 tab 01/12/23 [Rx] Nitroglycerin Sl Tabs [Nitrostat] 0.4 mg SUBLINGUAL Q5M PRN #30 tab 01/12/23 [Rx] Pantoprazole [Protonix] 40 mg PO AC-BRKFST #15 tab 01/12/23 [Rx] Follow up Appointment(s)/Referral(s): Don Shanks MD [Primary Care Provider] - 1-2 days Miguel Angel Perez MD [STAFF PHYSICIAN] - 1 Week Activity/Diet/Wound Care/Special Instructions: Activity Limited until follow-up Follow-up with primary care provider on discharge Recommend outpatient follow-up with cardiology as needed Continue taking medications as prescribed Continue heart healthy diet Discharge Disposition: HOME SELF-CARE
== END 2023-01-12 21:16 | disposition home or self-care (01) ==
LOC: EC 11:00 → 6NMEDSUR 13:04
PROVIDERS: ADMIT Internal Medicine; ATTEND Internal Medicine
DX: R07.9 Chest pain, unspecified (principal); I10 Essential (primary) hypertension; K92.2 Gastrointestinal hemorrhage, unspecified; E66.01 Morbid (severe) obesity due to excess calories; Z68.33 Body mass index [BMI] 33.0-33.9, adult; Z86.14 Personal history of Methicillin resistant Staphylococcus aureus infection; Z79.899 Other long term (current) drug therapy
CPT/HCPCS: 99285; 36415; 94760; 93005; 93017; 93306; 85379; 80061; 80053; 80048; 83735; 84484; 85025 ×2; 85610; 85730; 71046; G0378 ×2

== ENCOUNTER 2023-05-08 20:36 | Emergency (ER) | payer BC ==
[2023-05-08 20:44] VITALS: RESP 18
[2023-05-08] MEDS ORDERED: KETOROLAC 15 MG/ML 1 ML VIAL IM STA (21:16)
[2023-05-08] MEDS ORDERED: ACET/COD 300 MG/30 MG STARTER PACK 6 TAB BTL PO STA (21:16)
[2023-05-08] MEDS ORDERED: Acetaminophen-Codeine 300-30mg TAB PO STA (21:21)
--- NOTE | 2023-05-08 21:27 | ED ---
General Adult HPI - General Chief complaint: Dental/Oral Stated complaint: severe toothache Time Seen by Provider: 05/08/23 20:48 Source: patient, RN notes reviewed Mode of arrival: ambulatory Limitations: no limitations - History of Present Illness Initial comments: 42-year-old male presents the emergency department chief complaint of dental pain. He states that he first noticed it yesterday morning. He states this is on the right side of his mouth. Initially Tylenol and Motrin was helping for the pain but he states that is no longer helping. The only relief that he is getting at this time is by drinking water. Past medical history include hypertension. He has no known medication ALLERGIES. Denies fever, chills, nausea, vomiting. - Related Data Home Medications Medication Instructions Recorded Confirmed Ergocalciferol (Vitamin D2) 1,250 mcg PO FR 01/11/23 01/11/23 [Drisdol (50,000 Iu)] Losartan [Cozaar] 25 mg PO DAILY@1330 01/11/23 01/11/23 Pimecrolimus 1 applic TOPICAL DAILY PRN 01/11/23 01/11/23 Triamcinolone 0.1% Ointment 1 applic TOPICAL DAILY PRN 01/11/23 01/11/23 [Kenalog 0.1% Ointment] Previous Rx's Medication Instructions Recorded Aspirin 81 mg PO DAILY #30 tab 01/12/23 Nitroglycerin Sl Tabs [Nitrostat] 0.4 mg SUBLINGUAL Q5M PRN #30 tab 01/12/23 Pantoprazole [Protonix] 40 mg PO AC-BRKFST #15 tab 01/12/23 Amoxic-Pot Clav 875-125Mg 1 tab PO Q12HR #10 tab 05/08/23 [Augmentin 875-125] Allergies Allergy/AdvReac Type Severity Reaction Status Date / Time No Known Allergies Allergy Verified 05/08/23 20:43 Review of Systems ROS Statement: Those systems with pertinent positive or pertinent negative responses have been documented in the HPI. ROS Other: All systems not noted in ROS Statement are negative. Past Medical History Past Medical History: GI Bleed, Hypertension History of Any Multi-Drug Resistant Organisms: MRSA Date of last positivie culture/infection: 2007 MDRO Source:: right forearm, left elbow. Past Surgical History: Orthopedic Surgery Additional Past Surgical History / Comment(s): Left wrist sx, 1cm adenoma removal 09/2020 Past Psychological History: No Psychological Hx Reported Smoking Status: Never smoker Past Alcohol Use History: Occasional Past Drug Use History: None Reported General Exam Limitations: no limitations General appearance: alert, in no apparent distress, other (Uncomfortable) Head exam: Present: atraumatic, normocephalic, normal inspection Eye exam: Present: normal appearance, PERRL, EOMI. Absent: scleral icterus, conjunctival injection, periorbital swelling ENT exam: Present: normal exam, mucous membranes moist, other (Dental caries in right upper dentition) Neck exam: Present: normal inspection. Absent: tenderness, meningismus, lymphadenopathy Respiratory exam: Present: normal lung sounds bilaterally. Absent: respiratory distress, wheezes, rales, rhonchi, stridor Cardiovascular Exam: Present: regular rate, normal rhythm, normal heart sounds. Absent: systolic murmur, diastolic murmur, rubs, gallop, clicks Extremities exam: Present: normal inspection, full ROM, normal capillary refill. Absent: tenderness, pedal edema, joint swelling, calf tenderness Neurological exam: Present: alert, oriented X3 Psychiatric exam: Present: normal affect, normal mood Skin exam: Present: warm, dry, intact, normal color. Absent: rash Course Vital Signs 05/08/23 05/08/23 20:41 21:56 Temperature 97.8 F 98.2 F Pulse Rate 65 64 Respiratory 18 18 Rate Blood Pressure 148/97 146/92 O2 Sat by Pulse 100 100 Oximetry Medical Decision Making - Medical Decision Making Was pt. sent in by a medical professional or institution (, PA, MOLDING SUPERVISOR, urgent care, hospital, or group home...) When possible be specific @ -No Did you speak to anyone other than the patient for history (EMS, parent, family, police, friend...)? What history was obtained from this source @ -No Did you review nursing and triage notes (agree or disagree)? Why? @ -I reviewed and agree with nursing and triage notes Were old charts reviewed (outside hosp., previous admission, EMS record, old EKG, old radiological studies, urgent care reports/EKG's, group home records)? Report findings @ -No old charts were reviewed Differential Diagnosis (chest pain, altered mental status, abdominal pain women, abdominal pain men, vaginal bleeding, weakness, fever, dyspnea, syncope, headache, dizziness, GI bleed, back pain, seizure, CVA, palpatations, mental health, musculoskeletal)? @ -Dental abscess, dental infection, dental caries, otitis media, this list is not all inclusive EKG interpreted by me (3pts min.). @ -none X-rays interpreted by me (1pt min.). @ -None done CT interpreted by me (1pt min.). @ -None done U/S interpreted by me (1pt. min.). @ -None done What testing was considered but not performed or refused? (CT, X-rays, U/S, labs)? Why? @ -None What meds were considered but not given or refused? Why? @ -None Did you discuss the management of the patient with other professionals (professionals i.e. , PA, MOLDING SUPERVISOR, lab, RT, psych nurse, social director, licensed surveyor, teacher, disability liaison officer, block and case maker)? Give summary @ -No Was smoking cessation discussed for >3mins.? @ -No Was critical care preformed (if so, how long)? @ -No Were there social determinants of health that impacted care today? How? (Homelessness, low income, unemployed, alcoholism, drug addiction, transportation, low edu. Level, literacy, decrease access to med. care, senior living, rehab)? @ -No Was there de-escalation of care discussed even if they declined (Discuss DNR or withdrawal of care, Hospice)? DNR status @ -No What co-morbidities impacted this encounter? (DM, HTN, Smoking, COPD, CAD, Cancer, CVA, ARF, Chemo, Hep., AIDS, mental health diagnosis, sleep apnea, morbid obesity)? @ -None Was patient admitted / discharged? Hospital course, mention meds given and route, prescriptions, significant lab abnormalities, going to OR and other pertinent info. @ -Discharged. Patient presented to the emergency department with chief complaint of dental pain. Patient states that it started yesterday. He was bending Tylenol and Motrin for pain which helped initially but it is not helping anymore. The only thing that is helping currently is water rinses. Patient given IM Toradol and Tylenol 3. Patient given Tylenol 3 starter pack and Augmentin. He is going to follow up with his dentist tomorrow as scheduled. Patient stable at time of discharge. Case discussed with my attending, Dr. Calvo Undiagnosed new problem with uncertain prognosis? @ -No Drug Therapy requiring intensive monitoring for toxicity (Heparin, Nitro, Insulin, Cardizem)? @ -No Were any procedures done? @ -No Diagnosis/symptom? @ -Dental pain Acute, or Chronic, or Acute on Chronic? @ -acute Uncomplicated (without systemic symptoms) or Complicated (systemic symptoms)? @ -Uncomplicated Side effects of treatment? @ -No Exacerbation, Progression, or Severe Exacerbation? @ -No Poses a threat to life or bodily function? How? (Chest pain, [place], [place], pneumonia, PE, COPD, DKA, ARF, appy, cholecystitis, CVA, Diverticulitis, Homicidal, Suicidal, threat to staff... and all critical care pts) @ -No Disposition Clinical Impression: Dental caries Disposition: HOME SELF-CARE Condition: Stable Instructions (If sedation given, give patient instructions): Toothache (ED) Additional Instructions: Follow up with your dentist as scheduled. Return to the emergency department for new or worsening symptoms. Prescriptions: Amoxic-Pot Clav 875-125Mg [Augmentin 875-125] 1 tab PO Q12HR #10 tab Is patient prescribed a controlled substance at d/c from ED?: No Referrals: Don Shanks MD [Primary Care Provider] - 1-2 days Time of Disposition: 21:28
[2023-05-08 21:58] VITALS: BP 146/92; PULSE 64; TEMP 98.2
== END 2023-05-08 22:00 | disposition home or self-care (01) ==
LOC: EC 20:36
DX: K02.9 Dental caries, unspecified (principal); I10 Essential (primary) hypertension; Z79.899 Other long term (current) drug therapy
CPT/HCPCS: 99283; 96372; J1885

== ENCOUNTER → 2023-10-30 | Day surgery (SDC) | payer BC ==
[2023-10-25 11:32] VITALS: BMI 31.8
[~2023-10-30] MED LIST changes: -LACTATED RINGERS 1,000 ML IV SCH; +LIDOCAINE 1% INJ 10MG/ML (20 ML MDV) ONE; +ONDANSETRON 4 MG/2 ML VIAL IVP PRN; +PROPOFOL 10 MG/ML 20 ML VIAL IV ONE
[2023-10-30] MEDS: LACTATED RINGERS 1,000 ML IV SCH (12:13)
[2023-10-30 12:35] VITALS: TEMP 97.5
--- NOTE | 2023-10-30 13:00 | P.PCN ---
Date of Procedure: 10/30/23 Procedure(s) Performed: BRIEF HISTORY: Patient is a 43-year-old pleasant white male scheduled for an elective colonoscopy as a part of evaluation of prior history of colon polyps. Last coloscopy was 3 years ago. PROCEDURE PERFORMED: Colonoscopy with snare polypectomy. PREOPERATIVE DIAGNOSIS: History of colon polyps. IV sedation per Anesthesia. PROCEDURE: After informed consent was obtained, the patient, was brought into the endoscopy unit. IV sedation was administered by Anesthesia under continuous monitoring. Digital rectal examination was normal. Initially the Olympus CF-160 flexible video colonoscope was then inserted in the rectum, gradually advanced into the cecum without any difficulty. Careful examination was performed as the scope was gradually being withdrawn. Ileocecal valve and the appendiceal orifice were visualized and appeared normal. Prep was excellent. Mucosa of the cecum, ascending colon, was normal. In the distal transverse colon there was a 1.2 cm broad-based polyp that was removed by snare polyp rectum he. transverse colon, descending colon, sigmoid colon, and rectum appeared normal. Retroflexion was performed in the rectum and no lesions were seen. The patient tolerated the procedure well. IMPRESSION: 1.2 cm broad-based distal transverse colon polyp status post snare polypectomy Rest of the colon appeared normal RECOMMENDATIONS: Findings of this examination were discussed with the patient as well as his family. He was advised to follow with the biopsy results. If the biopsy reveals adenoma he can have a repeat colonoscopy in 3 years..
[2023-10-30 13:34] VITALS: BP 136/88; PULSE 70; RESP 16
== END ==
LOC: ORWHC2ENDO 11:27
PROVIDERS: ATTEND Internal Medicine Gastroenterology
DX: Z12.11 Encounter for screening for malignant neoplasm of colon (principal); D12.3 Benign neoplasm of transverse colon; I10 Essential (primary) hypertension; Z86.010 Personal history of colon polyps; Z79.899 Other long term (current) drug therapy
CPT/HCPCS: 45385; 88305

== ENCOUNTER 2024-03-02 19:23 | Emergency (ER) | payer BC ==
[2024-03-02 19:28] VITALS: TEMP 97.7
--- NOTE | 2024-03-02 20:02 | ED ---
General Adult HPI - General Chief complaint: Headache Stated complaint: Chest pain, Headache, dizziness Time Seen by Provider: 03/02/24 19:31 Source: patient, RN notes reviewed Mode of arrival: ambulatory Limitations: no limitations - History of Present Illness Initial comments: 43-year-old male presenting to the ED with a chief complaint of headache. P arikmyra reports he was having sex approximately 2 to 3 hours ago when all of a sudden developed a right-sided headache. Reports no history of headaches. States that this is the worst headache of his life. Notes associated nausea no vomiting. Approximately after an hour development of headache started to note chills. 30 minutes after that started to note left-sided chest pain which she describes as similar to indigestion. States pain is positional in nature and worse with movement. Patient notes a history of hypertension. No prior cardiac intervention. Does note he has been having some rhinorrhea and congestion however states that he chalked it up to allergies. Denies abdominal pain. Denies changes in bowel or bladder habits. Patient is a non-smoker. Notes history of HTN. - Related Data Home Medications Medication Instructions Recorded Confirmed Losartan [Cozaar] 25 mg PO DAILY 01/11/23 10/30/23 Allergies Allergy/AdvReac Type Severity Reaction Status Date / Time dog dander Allergy Mild Rash/Hives Verified 03/02/24 19:25 Review of Systems ROS Statement: Those systems with pertinent positive or pertinent negative responses have been documented in the HPI. ROS Other: All systems not noted in ROS Statement are negative. Past Medical History Past Medical History: Hypertension Additional Past Medical History / Comment(s): HX HEMORRHOIDS History of Any Multi-Drug Resistant Organisms: MRSA Date of last positivie culture/infection: 2007 MDRO Source:: right forearm, left elbow. Past Surgical History: Orthopedic Surgery Additional Past Surgical History / Comment(s): Left wrist sx,. COLONOSCOPY WITH REMOVAL 1 CM ADENOMA 09/2020 Past Anesthesia/Blood Transfusion Reactions: No Reported Reaction Past Psychological History: No Psychological Hx Reported Smoking Status: Never smoker Past Alcohol Use History: Occasional Past Drug Use History: None Reported - Past Family History Mother Family Medical History: Cancer General Exam Limitations: no limitations General appearance: alert, in no apparent distress Eye exam: Present: normal appearance, PERRL, EOMI Neck exam: Absent: meningismus Respiratory exam: Present: normal lung sounds bilaterally, chest wall tenderness Cardiovascular Exam: Present: regular rate GI/Abdominal exam: Present: soft, normal bowel sounds. Absent: distended, tenderness, guarding, rebound, rigid Neurological exam: Present: alert, oriented X3, CN II-XII intact ([id number]-pc-zhib, rapid alternating hand movements, ulvc-eq-iznb intact.) Skin exam: Present: warm, dry Course Vital Signs 03/02/24 03/02/24 03/02/24 19:25 20:00 21:00 Temperature 97.7 F Pulse Rate 76 64 64 Respiratory 22 14 14 Rate Blood Pressure 137/81 126/82 129/87 O2 Sat by Pulse 100 100 100 Oximetry Medical Decision Making - Medical Decision Making Was pt. sent in by a medical professional or institution (, PA, PITTING MACHINE OPERATOR, urgent care, hospital, or [facility]...) When possible be specific @ -No Did you speak to anyone other than the patient for history (EMS, parent, family, police, friend...)? What history was obtained from this source @ -No Did you review nursing and triage notes (agree or disagree)? Why? @ -I reviewed and agree with nursing and triage notes Were old charts reviewed (outside hosp., previous admission, EMS record, old EKG, old radiological studies, urgent care reports/EKG's, [facility] records)? Report findings @ -No old charts were reviewed Differential Diagnosis (chest pain, altered mental status, abdominal pain women, abdominal pain men, vaginal bleeding, weakness, fever, dyspnea, syncope, headache, dizziness, GI bleed, back pain, seizure, CVA, palpatations, mental health, musculoskeletal)? @ -Differential Headache: Migraine, tension, cluster, carbon monoxide, central venous thrombosis, pension karma temporal arteritis, acute closure glaucoma, intercranial hemorrhage, mastoiditis, sinusitis, head injury, this is not meant to be an all-inclusive list. Differential Chest Pain: Stable Angina, Unstable Angina, STEMI, NSTEMI Aortic Dissection, Pneumothorax, Musculoskeletal, Esophageal Spasm GERD, Cholecystitis, Pancreatitis, Zoster, this is not meant to be an all-inclusive list. EKG interpreted by me (3pts min.). @ -EKG interpreted me showing a sinus rhythm 67 bpm changes. W[place] 170, QRS 98, QT/QTc 371/386. X-rays interpreted by me (1pt min.). @ -Chest x-ray interpreted me which revealed no evidence of acute finding CT interpreted by me (1pt min.). @ -CT brain and CT [place] [facility] [place] interpreted me which revealed no evidence of acute finding. U/S interpreted by me (1pt. min.). @ -None done What testing was considered but not performed or refused? (CT, X-rays, U/S, labs)? Why? @ -None What meds were considered but not given or refused? Why? @ -None Did you discuss the management of the patient with other professionals (professionals i.e. , PA, PITTING MACHINE OPERATOR, lab, RT, psych nurse, social worker psychiatric, ship's carpenter, teacher, executive vice president and chief operating officer, supportive employment case manager)? Give summary @ -No Was smoking cessation discussed for >3mins.? @ -No Was critical care preformed (if so, how long)? @ -No Were there social determinants of health that impacted care today? How? (Ho melessness, low income, unemployed, alcoholism, drug addiction, transportation, low edu. Level, literacy, decrease access to med. care, alf, rehab)? @ -No Was there de-escalation of care discussed even if they declined (Discuss DNR or withdrawal of care, Hospice)? DNR status @ -No What co-morbidities impacted this encounter? (DM, HTN, Smoking, COPD, CAD, Cancer, CVA, ARF, Chemo, Hep., AIDS, mental health diagnosis, sleep apnea, morbid obesity)? @ -None Was patient admitted / discharged? Hospital course, mention meds given and route, prescriptions, significant lab abnormalities, going to OR and other pertinent info. @ -Discharge 43-year-old male presented to the ED with a chief complaint of headache. Patient reports onset of the worst headache of his life during sex. States about an hour later started to experience some chest pain. Chest pain is positional in nature and worse with certain movements. Reproducible on examination. In regards to chest pain, likely musculoskeletal. Troponin undetectable. Reproducible on examination. EKG showed a sinus rhythm without acute ST or T wave changes. In regards to headache, unlikely this is a subarachnoid hemorrhage. Patient upon reevaluation reported all symptoms completely resolved prior to being provided any medications. Due to low suspicion of subarachnoid hemorrhage with spontaneous resolution of symptoms, LP was not performed. Laboratory studies reviewed. Labs including CBC CMP, UA, serology panel unremarkable. Chest x-ray revealed no evidence of acute finding. Patient discharged home in stable condition. Discussed strict return precautions with patient who verbalized agreement. Undiagnosed new problem with uncertain prognosis? @ -No Drug Therapy requiring intensive monitoring for toxicity (Heparin, Nitro, Insulin, Cardizem)? @ -No Were any procedures done? @ -No Diagnosis/symptom? @ -Headache, chest pain Acute, or Chronic, or Acute on Chronic? @ -Acute Uncomplicated (without systemic symptoms) or Complicated (systemic symptoms)? @ -Uncomplicated Side effects of treatment? @ -No Exacerbation, Progression, or Severe Exacerbation? @ -No Poses a threat to life or bodily function? How? (Chest pain, USA, GA, pneumonia, PE, COPD, DKA, ARF, appy, cholecystitis, CVA, Diverticulitis, Homicidal, S uicidal, threat to staff... and all critical care pts) @ -No - Lab Data Result diagrams: 03/02/24 19:54 03/02/24 19:54 Lab Results 03/02/24 03/02/24 03/02/24 Range/Units 19:54 19:54 19:54 WBC 6.2 (3.8-10.6) k/uL RBC 5.20 (4.30-5.90) m/uL Hgb 15.0 (13.0-17.5) gm/dL Hct 42.7 (39.0-53.0) % MCV 82.1 (80.0-100.0) fL MCH 28.8 (25.0-35.0) pg MCHC 35.0 (31.0-37.0) g/dL RDW 13.2 (11.5-15.5) % Plt Count 189 (150-450) k/uL MPV 9.0 Neutrophils % 57 % Lymphocytes % 31 % Monocytes % 6 % Eosinophils % 4 % Basophils % 1 % Neutrophils # 3.5 (1.3-7.7) k/uL Lymphocytes # 1.9 (1.0-4.8) k/uL Monocytes # 0.4 (0-1.0) k/uL Eosinophils # 0.2 (0-0.7) k/uL Basophils # 0.0 (0-0.2) k/uL PT 10.6 (10.0-12.5) sec INR 1.0 (<1.2) APTT 24.4 (22.0-30.0) sec Sodium 140 (137-145) mmol/L Potassium 4.0 (3.5-5.1) mmol/L Chloride 107 (98-107) mmol/L Carbon Dioxide 26 (22-30) mmol/L Anion Gap 7 mmol/L BUN 17 (9-20) mg/dL Creatinine 0.78 (0.66-1.25) mg/dL Est GFR (CKD-EPI)AfAm >90 (>60 ml/min/1.73 sqM) Est GFR (CKD-EPI)NonAf >90 (>60 ml/min/1.73 sqM) Glucose 104 H (74-99) mg/dL Calcium 9.4 (8.4-10.2) mg/dL Magnesium 2.1 (1.6-2.3) mg/dL Total Bilirubin 0.7 (0.2-1.3) mg/dL AST 29 (17-59) U/L ALT 29 (4-49) U/L Alkaline Phosphatase 59 (38-126) U/L Troponin I (0.000-0.034) ng/mL Total Protein 6.8 (6.3-8.2) g/dL Albumin 4.3 (3.5-5.0) g/dL Urine Color Urine Appearance (Clear) Urine pH (5.0-8.0) Ur Specific [place] (1.001-1.035) Urine Protein (Negative) Urine Glucose (UA) (Negative) Urine Ketones (Negative) Urine Blood (Negative) Urine Nitrite (Negative) Urine Bilirubin (Negative) Urine Urobilinogen (<2.0) mg/dL Ur Leukocyte Esterase (Negative) Urine RBC (0-5) /hpf Urine WBC (0-5) /hpf Amorphous Sediment (None) /hpf Urine Bacteria (None) /hpf Urine Mucus (None) /hpf Urine Yeast (Budding) (None) /hpf Influenza Type A (PCR) (Not Detectd) Influenza Type B (PCR) (Not Detectd) RSV (PCR) (Not Detectd) SARS-CoV-2 (PCR) (Not Detectd) 03/02/24 03/02/24 03/02/24 Range/Units 19:54 20:00 20:45 WBC (3.8-10.6) k/uL RBC (4.30-5.90) m/uL Hgb (13.0-17.5) gm/dL Hct (39.0-53.0) % MCV (80.0-100.0) fL MCH (25.0-35.0) pg MCHC (31.0-37.0) g/dL RDW (11.5-15.5) % Plt Count (150-450) k/uL MPV Neutrophils % % Lymphocytes % % Monocytes % % Eosinophils % % Basophils % % Neutrophils # (1.3-7.7) k/uL Lymphocytes # (1.0-4.8) k/uL Monocytes # (0-1.0) k/uL Eosinophils # (0-0.7) k/uL Basophils # (0-0.2) k/uL PT (10.0-12.5) sec INR (<1.2) APTT (22.0-30.0) sec Sodium (137-145) mmol/L Potassium (3.5-5.1) mmol/L Chloride (98-107) mmol/L Carbon Dioxide (22-30) mmol/L Anion Gap mmol/L BUN (9-20) mg/dL Creatinine (0.66-1.25) mg/dL Est GFR (CKD-EPI)AfAm (>60 ml/min/1.73 sqM) Est GFR (CKD-EPI)NonAf (>60 ml/min/1.73 sqM) Glucose (74-99) mg/dL Calcium (8.4-10.2) mg/dL Magnesium (1.6-2.3) mg/dL Total Bilirubin (0.2-1.3) mg/dL AST (17-59) U/L ALT (4-49) U/L Alkaline Phosphatase (38-126) U/L Troponin I <0.012 (0.000-0.034) ng/mL Total Protein (6.3-8.2) g/dL Albumin (3.5-5.0) g/dL Urine Color Light Yellow Urine Appearance Cloudy (Clear) Urine pH 8.0 (5.0-8.0) Ur Specific [place] 1.027 (1.001-1.035) Urine Protein Trace H (Negative) Urine Glucose (UA) Negative (Negative) Urine Ketones Negative (Negative) Urine Blood Negative (Negative) Urine Nitrite Negative (Negative) Urine Bilirubin Negative (Negative) Urine Urobilinogen <2.0 (<2.0) mg/dL Ur Leukocyte Esterase Negative (Negative) Urine RBC 2 (0-5) /hpf Urine WBC 1 (0-5) /hpf Amorphous Sediment Rare H (None) /hpf Urine Bacteria Rare H (None) /hpf Urine Mucus Rare H (None) /hpf Urine Yeast (Budding) Many H (None) /hpf Influenza Type A (PCR) Not Detected (Not Detectd) Influenza Type B (PCR) Not Detected (Not Detectd) RSV (PCR) Not Detected (Not Detectd) SARS-CoV-2 (PCR) Not Detected (Not Detectd) Disposition Clinical Impression: Headache, Chest pain Disposition: HOME SELF-CARE Condition: Good Instructions (If sedation given, give patient instructions): Acute Headache (ED), Chest Pain (ED) Additional Instructions: Please return to the Emergency Department if symptoms worsen or any other concerns. Please follow-up with your primary care provider. Is patient prescribed a controlled substance at d/c from ED?: No Referrals: Don Shanks MD [Primary Care Provider] - 1-2 days Time of Disposition: 22:27
[2024-03-02 20:37] LABS: Partial Thromboplastin Time 24.4 sec (22.0-30.0); Prothrombin Time 10.6 sec (10.0-12.5)
[2024-03-02 20:40] LABS: ALT 29 U/L (4-49); AST 29 U/L (17-59); African American GFR (CKD) >90 (>60 ml/min/1.73 sqM); Albumin 4.3 g/dL (3.5-5.0); Alkaline Phosphatase 59 U/L (38-126); Anion Gap 7 mmol/L; Blood Urea Nitrogen 17 mg/dL (9-20); Calcium 9.4 mg/dL (8.4-10.2); Carbon Dioxide 26 mmol/L (22-30); Chloride 107 mmol/L (98-107); Glucose 104 mg/dL (74-99); Magnesium 2.1 mg/dL (1.6-2.3); Non-African American GFR(CKD) >90 (>60 ml/min/1.73 sqM); Sodium 140 mmol/L (137-145); Total Bilirubin 0.7 mg/dL (0.2-1.3); Total Protein 6.8 g/dL (6.3-8.2)
--- NOTE | 2024-03-02 20:45 | XR ---
EXAMINATION TYPE: XR chest 2V DATE OF EXAM: 03/02/2024 8:35 PM CLINICAL INDICATION:Male, 43 years old with history of Chest Pain; COMPARISON: Chest radiographs from 01/11/2023 TECHNIQUE: XR chest 2V Frontal and lateral views of the chest. FINDINGS: Lungs/Pleura: There is no evidence of pleural effusion, focal consolidation, or pneumothorax. Pulmonary vascularity: Unremarkable. Heart/mediastinum: Cardiomediastinal silhouette is unremarkable. Musculoskeletal: No acute osseous pathology. IMPRESSION: No acute cardiopulmonary disease/process.
--- NOTE | 2024-03-02 20:53 | CT ---
EXAMINATION TYPE: CT angio COW [place] CT DLP: 718.3 mGycm, Automated exposure control for dose reduction was used. DATE OF EXAM: 03/02/2024 8:30 PM COMPARISON: CT head same day. CLINICAL INDICATION:Male, 43 years old with history of postcoital HERNANDEZ "worst HERNANDEZ of life"; PHH, headach e TECHNIQUE: CT angio COW [place] Axially acquired helical CT angiogram was obtained. Axial im ages are supplemented with 3D reconstructions which were post-processed at an independent workstation . NASCET criteria used. Contrast used:65ml mL of Isovue 370 with IV Contrast, none Oral contrast used: none FINDINGS: Vertebral arteries: The vertebral arteries are patent. Vertebral artery dominance: Right Basilar artery: The basilar artery is intact. The basilar artery bifurcation is normal. Internal Carotid arteries: The cervical, petrous, cavernous and supraclinoid segments are normal. JACQUE: Patent with no evidence of aneurysm. ACOM: Present without evidence of aneurysm. MCA: Patent with no evidence of aneurysm. SPECIAL EDUCATION CLASSROOM AIDE: Patent with no evidence of aneurysm. PCOM: Hypoplastic bilaterally. Dural sinuses: Patent. IMPRESSION: No evidence of high-grade stenosis or intracranial aneurysm.
--- NOTE | 2024-03-02 21:02 | CT ---
EXAMINATION TYPE: CT brain wo con CT DLP: 1240.4 mGycm, Automated exposure control for dose reduction was used. DATE OF EXAM: 03/02/2024 8:29 PM COMPARISON: None. CLINICAL INDICATION:Male, 43 years old with history of postcoital HERNANDEZ "worst HERNANDEZ of life", headache TECHNIQUE: Brain: Axial CT images of the brain were obtained with coronal and sagittal reformats created and rev iewed. Contrast used: None. Oral contrast used: None. FINDINGS: Brain: Extra-axial spaces: No abnormal extra-axial fluid collections. Ventricular system: Within normal limits Cerebral parenchyma: No acute intraparenchymal hemorrhage or mass effect. The rosales-white junction is well differentiated. Cerebellum: Unremarkable. Mass effect: No evidence of midline shift. Intracranial vasculature: unremarkable Soft tissues: Normal. Calvarium/osseous structures: No depressed skull fracture. Paranasal sinuses and mastoid air cells: Mild scattered paranasal sinus disease. Visualized orbits: Orbital contents are intact. IMPRESSION: No acute intracranial process. No evidence for intracranial hemorrhage.
[2024-03-02 21:54] LABS: Amorphous Sediment,Urine Rare /hpf; Appearance,Urine Cloudy (Clear); Bacteria,Urine Rare /hpf; Bilirubin,Urine Negative (Negative); Blood,Urine Negative (Negative); Budding Yeast,Urine Many /hpf; Color,Urine Light Yellow; Glucose,Urine (UA) Negative (Negative); Ketones,Urine Negative (Negative); Leukocyte Esterase,Urine Negative (Negative); Mucus,Urine Rare /hpf; Nitrite,Urine Negative (Negative); Protein,Urine Trace (Negative); RBC,Urine 2 /hpf (0-5); Specific Gravity,Urine 1.027 (1.001-1.035); Urobilinogen,Urine <2.0 mg/dL (<2.0); WBC,Urine 1 /hpf (0-5)
[2024-03-02 21:59] LABS: Basophils % (A) 1 %; Eosinophils # (A) 0.2 k/uL (0-0.7); Eosinophils % (A) 4 %; HCT 42.7 % (39.0-53.0); Lymphocytes # (A) 1.9 k/uL (1.0-4.8); Lymphocytes % (A) 31 %; MCH 28.8 pg (25.0-35.0); MCV 82.1 fL (80.0-100.0); Monocytes # (A) 0.4 k/uL (0-1.0); Monocytes % (A) 6 %; Neutrophils # (A) 3.5 k/uL (1.3-7.7); Neutrophils % (A) 57 %; Platelet Count 189 k/uL (150-450); RDW 13.2 % (11.5-15.5); WBC 6.2 k/uL (3.8-10.6)
[2024-03-02] MEDS: HYDROmorphone 1 MG/ML 1 ML SYRINGE IVP STA (22:35)
[2024-03-02] MEDS: ACETAMINOPHEN TAB 500 MG TAB PO STA (22:35)
[2024-03-02] MEDS: ONDANSETRON 4 MG/2 ML VIAL IVP STA (22:35)
[2024-03-02 23:00] VITALS: BP 127/80; PULSE 68; RESP 18
== END 2024-03-02 22:35 | disposition home or self-care (01) ==
LOC: EC 19:23
DX: R07.89 Other chest pain (principal); R51.9 Headache, unspecified; Z88.8 Allergy status to other drugs, medicaments and biological substances; Z11.52 Encounter for screening for COVID-19
CPT/HCPCS: 36415; 93005; 80053; 83735; 84484; 85025; 85610; 85730; 81001; 87636; 71046; 70496; 70450; 99285; Q9967